=== PATIENT | female | born 1960 | race Caucasian/White ===

== ENCOUNTER 2016-10-20 09:35 | Emergency (ER) | payer OTHER ==
[~2016-10-20] VITALS: Ht 162.6 cm; Wt 75.5 kg
[~2016-10-20 09:35] MED LIST: ASPI81TA3 PO; IBUP400T22 PO; NIFE30TA60 PO
[2016-10-20 09:44] VITALS: Ht 162.6 cm; Wt 75.5 kg
[2016-10-20] MEDS ORDERED: ONDANSETRON 4 MG INJ IV STA (10:08)
[2016-10-20] MEDS ORDERED: FAMOTIDINE 20 MG INJ IV STA (10:08)
[2016-10-20] MEDS ORDERED: KETOROLAC 30 MG INJ IV STA (10:08)
[2016-10-20] MEDS ORDERED: SOD CHLORIDE 0.9% 1,000 ML IV STA (10:08)
[2016-10-20 10:49] LABS: ADD SCAN DIFF NO
[2016-10-20 10:51] LABS: BASOPHIL # 0.1 10^3/ul (0.0-0.1); BASOPHILS % 0.9 % (0.0-2.0); EOSINOPHILS # 0.2 10^3/ul (0.0-0.5); EOSINOPHILS % 3.2 % (0.0-7.0); HEMOGLOBIN 12.9 g/dl (12.0-16.0); LYMPHOCYTES # 2.4 10^3/ul (0.8-2.9); LYMPHOCYTES % 42.9 % (15.0-51.0); MEAN CORPUSCULAR HEMOGLOBIN 27.7 pg (29.0-33.0); MEAN CORPUSCULAR HGB CONC 33.1 g/dl (32.0-37.0); MEAN CORPUSCULAR VOLUME 83.9 fl (82.0-101.0); MEAN PLATELET VOLUME 10.4 fl (7.4-10.4); MONOCYTE # 0.4 10^3/ul (0.3-0.9); MONOCYTES % 6.6 % (0.0-11.0); NEUTROPHIL # 2.6 10^3/ul (1.6-7.5); PLATELET COUNT 257 10^3/UL (140-415); RED BLOOD COUNT 4.65 10^6/ul (4.20-5.40); RED CELL DISTRIBUTION WIDTH 13.4 % (11.5-14.5); WHITE BLOOD COUNT 5.6 10^3/ul (4.8-10.8)
[2016-10-20 10:54] LABS: ADD UMIC NO; URINE BILIRUBIN (Dip) NEGATIVE (NEGATIVE); URINE BLOOD (Dip) NEGATIVE (NEGATIVE); URINE COLOR LT. YELLOW (YELLOW); URINE GLUCOSE (Dip) NEGATIVE (NEGATIVE); URINE KETONES (Dip) NEGATIVE (NEGATIVE); URINE LEUKOCYTE ESTERASE (Dip) NEGATIVE (NEGATIVE); URINE NITRITE (Dip) NEGATIVE (NEGATIVE); URINE TOTAL PROTEIN (Dip) NEGATIVE (NEGATIVE); URINE UROBILINOGEN (Dip) 0.2 E.U./dL (0.1-1.0)
[2016-10-20 11:10] LABS: ALBUMIN 4.4 g/dl (3.3-4.9); ALBUMIN/GLOBULIN RATIO 1.1; BILIRUBIN,INDIRECT 0.4 mg/dl (0-1.1); BILIRUBIN,TOTAL 0.4 mg/dl (0.2-1.3); CALCIUM 9.4 mg/dl (8.4-10.2); CREATININE 0.67 mg/dl (0.44-1.00); POTASSIUM 4.2 mmol/L (3.5-5.1); TOTAL PROTEIN 8.4 g/dl (6.1-8.1)
--- NOTE | 2016-10-20 12:17 | RADRPT ---
PROCEDURE: CT Abdomen and Pelvis without contrast. CLINICAL INDICATION: Abdominal and pelvic pain. Left lower quadrant pain for 5 days. TECHNIQUE: CT scan of the abdomen and pelvis without contrast was performed. Coronal and sagittal reformatted images were obtained from the axial source images. Images were reviewed on a high[employer] PACS workstation. Total exam DLP is 763.98 mGy-cm. CTDIvol is 13.51 mGy. One or more of the f ollowing dose reduction techniques were used: Automated exposure control, adjustment of the mA and/o r kV according to patient size, use of iterative reconstruction technique. COMPARISON: 04/03/2015. FINDINGS: The lung bases are normal. There is no pleural effusion. The liver is normal in size and attenuation. There is no focal hepatic lesion. The gallbladder and bile ducts are normal. The spleen is normal in size. There is no focal splenic lesion. Both adrenals are normal with no enlargement or mass. The pancreas is unremarkable with no mass or evidence of pancreatitis. There is no renal mass or hydronephrosis. There is no renal calculus or ureteral calculus. The abdominal aorta is not dilated. There is no retroperitoneal lymphadenopathy or mass. There is no pelvic lymphadenopathy or mass. The bladder and distal ureters are normal. The appendix is well seen and appears normal. There is diverticulosis of the descending colon and sigmoid colon. There is no evidence of divertic ulitis. The bowel and mesentery are otherwise normal. There is no free fluid or free gas. There are degenerative changes of the lower lumbar spine. There is no fracture or lytic lesion. IMPRESSION: 1. Normal appendix. 2. Diverticulosis of the sigmoid colon and descending colon. No evidence of diverticulitis. 3. Degenerative changes of the lower lumbar spine. 4. Otherwise unremarkable noncontrast CT scan of the abdomen and pelvis. RPTAT: QQ .Papito Rubio MD, Date Time Electronically viewed and signed by .Papito Rubio MD, on 10/20/2016 12:16 .R/
[2016-10-20 12:24] VITALS: BP 149/75; PULSE 42; RESP 18; TEMP 98.1
--- NOTE | 2016-10-20 13:19 | RADRPT ---
PROCEDURE: Pelvic ultrasound. CLINICAL INDICATION: Pelvic pain, evaluate for ovarian torsion TECHNIQUE: Hernandze scale, color doppler, spectral doppler ultrasound of the pelvis was performed with transabdominal and transvaginal transducers. COMPARISON: Pelvic ultrasound 04/03/2015 FINDINGS: Uterus: Position: Anteflexed Normal myometrial echogenicity. A small amount of fluid is present within the endometrial cavity. 8 mm echogenic focus observed in t he fundal region of the endometrium possibly representing a polyp. Ovaries: Normal sized ovaries with preserved blood flow. No adnexal masses. 9 mm follicular remnant of the right ovary. Free fluid: None. Measurements: Endometrium: 0.7 cm Uterus: 6.4 x 3.5 x 4.6 cm Right ovary: 2.0 x 0.8 x 1.5 cm Left ovary: 2.8 x 0.7 x 2.0 cm IMPRESSION: Normal sized ovaries without evidence of torsion. Small amount of fluid within the endometrial space with a 8 mm echogenic focus in the fundal region of the endometrium possibly representing a polyp; this is not clearly observed on the previous exami [facility]. RPTAT: AADD .Michael Liu MD, Date Time Electronically viewed and signed by .Michael Liu MD, on 10/20/2016 13:18 .B/
--- NOTE | 2016-10-20 13:51 | ERD ---
ER Documentation Chief Complaint Date/Time DATE: 10/20/16 TIME: 13:47 Chief Complaint Pt presents with LLQ AP and pelvic pain X 5 days. No fever/N/D. HPI This is a 56-year-old female who presents to the emergency room for evaluation of abdominal pain. The patient states that she has had abdominal pain for approximately 5 days. She states that is localized in the left portion of abdomen describes as an achy pain. The patient does state that she has had this in the past. She denies any nausea, vomiting, or diarrhea associated with this. She denies any vaginal bleeding or vaginal discharge associated with this. She does state that she has had a previous uterine polyp and this pain does feel similar to that ROS All systems reviewed and are negative except as per history of present illness. Medications Home Meds Reported Medications Nifedipine* (Nifedipine ER*) 30 Mg Tablet.sa, 30 MG PO DAILY, TAB.SA 11/09/15 Aspirin* (Aspirin* Chew) 81 Mg Tab.chew, 81 MG PO DAILY, TAB.CHEW 09/13/15 Discontinued Reported Medications Ibuprofen* (Ibuprofen*) 400 Mg Tablet, 400 MG PO Q6H Y for PAIN, TAB 11/09/15 Allergies Allergies: Coded Allergies: No Known Allergy (Unverified , 10/20/16) PMhx/Soc History of Surgery: Yes (R KNEE SURGERY, PREV. C/S) Anesthesia Reaction: No Hx Neurological Disorder: No Hx Respiratory Disorders: No Hx Cardiac Disorders: No Hx Psychiatric Problems: No Hx Miscellaneous Medical Probl: No Hx Alcohol Use: No Hx Substance Use: No Hx Tobacco Use: No Smoking Status: Never smoker Physical Exam Vitals Vital Signs Date Time Temp Pulse Resp B/P Pulse Ox O2 Delivery O2 Flow Rate FiO2 10/20/16 12:24 98.1 42 18 149/75 99 10/20/16 09:44 97.4 54 18 180/78 99 Physical Exam INITIAL VITAL SIGNS: Reviewed by me GENERAL: The patient is well developed and appropriate for usual state of health in no apparent distress HEENT: Pupils equal, round, and reactive to light. EOMI. There is no scleral icterus. NECK: C-spine is soft and supple, there is no meningismus. There is no cervical lymphadenopathy. LUNGS: Clear to auscultation bilaterally. There are no rales, wheezes or rhonchi. HEART: Regular rate and rhythm, no murmurs, clicks, rubs or gallops. ABDOMEN: Left lower quadrant tenderness to palpation, otherwise soft, non-tender , non-distended. There are bowel sounds in all four quadrants. No rebound or guarding. EXTREMITIES: There is no peripheral cyanosis or edema. No focal swelling or erythema. NEUROLOGICAL: The patient moves all four extremities with 5/5 strength. Cranial nerves II - XII are intact. Normal gait. Alert and oriented SKIN: There is no apparent rash or petechiae. HEME/LYMPHATIC: There is no evidence of excessive bruising or lymphedema. PSYCHIATRIC: The patient does not appear anxious or depressed. Result Diagram: 10/20/16 1020 10/20/16 1020 Results 24 hrs Laboratory Tests Test 10/20/16 10:20 White Blood Count 5.610^3/ul Red Blood Count 4.6510^6/ul Hemoglobin 12.9g/dl Hematocrit 39.0% Mean Corpuscular Volume 83.9fl Mean Corpuscular Hemoglobin 27.7pg Mean Corpuscular Hemoglobin Concent 33.1g/dl Red Cell Distribution Width 13.4% Platelet Count 68960^3/UL Mean Platelet Volume 10.4fl Neutrophils % 46.0% Lymphocytes % 42.9% Monocytes % 6.6% Eosinophils % 3.2% Basophils % 0.9% Nucleated Red Blood Cells % 0.0/100WBC Neutrophils # 2.610^3/ul Lymphocytes # 2.410^3/ul Monocytes # 0.410^3/ul Eosinophils # 0.210^3/ul Basophils # 0.110^3/ul Nucleated Red Blood Cells # 0.010^3/ul Urine Color LT. YELLOW Urine Clarity CLEAR Urine pH 6.0 Urine Specific Homer 1.015 Urine Ketones NEGATIVE Urine Nitrite NEGATIVE Urine Bilirubin NEGATIVE Urine Urobilinogen 0.2 E.U./dL Urine Leukocyte Esterase NEGATIVE Urine Hemoglobin NEGATIVE Urine Glucose NEGATIVE% Urine Total Protein NEGATIVE Sodium Level 140mmol/L Potassium Level 4.2mmol/L Chloride Level 105mmol/L Carbon Dioxide Level 24mmol/L Anion Gap 15 Blood Urea Nitrogen 17mg/dl Creatinine 0.67mg/dl Glucose Level 133mg/dl Calcium Level 9.4mg/dl Total Bilirubin 0.4mg/dl Direct Bilirubin 0.00mg/dl Indirect Bilirubin 0.4mg/dl Aspartate Amino Transf (AST/SGOT) 39IU/L Alanine Aminotransferase (ALT/SGPT) 49IU/L Alkaline Phosphatase 144IU/L Total Protein 8.4g/dl Albumin 4.4g/dl Globulin 4.00g/dl Albumin/Globulin Ratio 1.10 Lipase 57U/L Current Medications Medications (Trade) Dose Ordered Sig/Chip Route PRN Reason Start Time Stop Time Status Last Admin Dose Admin Sodium Chloride (NS) 1,000 ml @ 1,000 mls/hr Q1H STAT IV 10/20/16 10:08 10/20/16 11:38 DC 10/20/16 10:29 Ondansetron HCl (Zofran Inj) 4 mg ONCE STAT IV 10/20/16 10:08 10/20/16 10:09 DC 10/20/16 10:38 Famotidine (Pepcid Iv) 20 mg ONCE STAT IV 10/20/16 10:08 10/20/16 10:09 DC 10/20/16 10:38 Ketorolac Tromethamine (Toradol) 30 mg ONCE STAT IV 10/20/16 10:08 10/20/16 10:09 DC 10/20/16 10:37 Procedures/MDM CT abdomen pelvis without: 1. Normal appendix. 2. Diverticulosis of the sigmoid colon and descending colon. No evidence of diverticulitis. 3. Degenerative changes of the lower lumbar spine. 4. Otherwise unremarkable noncontrast CT scan of the abdomen and pelvis. Ultrasound pelvis: Normal sized ovaries without evidence of torsion. Small amount of fluid within the endometrial space with a 8 mm echogenic focus in the fundal region of the endometrium possibly representing a polyp; this is not clearly observed on the previous examination. This [age]-year-old female presents to the emergency room for evaluation of abdominal pain. The patient has had previous abdominal pain was diagnosed with an endometrial polyp. She did have polyp operated on previously. She is denying any vaginal bleeding at this time. When I evaluated her she did have left lower quadrant tenderness to palpation. I did obtain a CT scan and did not show diverticulitis. The patient also underwent an ultrasound of the pelvis which shows an 8 mm focus in the fundal region of her endometrium which likely represents a polyp. Patient's pain is controlled with Toradol at this time. She will be discharged home with a prescription for Motrin, she states that she will follow-up with her [employer] physician. Differential diagnoses entertained was broad with potential high acuity. Patient has been evaluated for appendicitis, cholecystitis, and other high risk medical and surgical causes of abdominal pain. Ultimately the patient's evaluation is nondiagnostic. Based on the patient's lack of risk factors, as well as the patient's clinical, laboratory, and imaging data, the patient appears to be low risk for these high risk causes of abdominal pain. Departure Diagnosis: Primary Impression: Abdominal pain Additional Impression: Endometrial polyp Condition: Stable SERENA ROBBINS DO Oct 20, 2016 13:51
[2016-10-20] MEDS ORDERED: IBUP800T25 PO (14:13)
== END 2016-10-20 14:22 | disposition home or self-care (01) ==
LOC: E/R 09:35
DX: R10.32 Left lower quadrant pain (principal); N84.0 Polyp of corpus uteri
CPT/HCPCS: 36415; 74176; 76830; 76856; 80053; 81003; 83690; 85025; 96374; 96375; J1885; J2405; J7030; Z7502; Z7610

== ENCOUNTER 2019-02-09 14:28 | Emergency (ER) | payer OTHER ==
[~2019-02-09] VITALS: Ht 160 cm; Wt 75.2 kg
[~2019-02-09 14:28] MED LIST changes: +ASPI-903 PO; -ASPI81TA3 PO; -IBUP400T22 PO; +IBUP800T48 PO; +NIFE30TA23 PO; -NIFE30TA60 PO
[2019-02-09 14:30] VITALS: BP 130/61; PULSE 68; RESP 20; Ht 160 cm; Wt 75.2 kg
[2019-02-09] MEDS ORDERED: KETOROLAC 60 MG INJ IM STA (14:50)
[2019-02-09] MEDS ORDERED: CYCL10TA7 PO (14:51)
[2019-02-09] MEDS ORDERED: NAPR-985 PO (14:51)
[2019-02-09] MEDS ORDERED: TRAM50TA2 PO (14:51)
--- NOTE | 2019-02-09 15:04 | ERD ---
ER Documentation Chief Complaint Chief Complaint RT UPPER BACK PAIN SINCE SATURDAY HPI 58-year-old female presenting with right scapular pain. Patient denies any traumatic injury and states that she has been doing a lot of repetitive motions with cleaning and cooking at work. She had this 1 to 2 years ago and it went away however is returned and worsened over the last 3 days. Denies any chest pain or shortness of breath. Took Tylenol and ibuprofen with no alleviation of symptoms. History: Hypertension and hyperlipidemia. Surgical history of breast surgery. NKDA. Social history denies ROS All systems reviewed and are negative except as per history of present illness. Medications Home Meds Active Scripts Cyclobenzaprine Hcl* (Cyclobenzaprine Hcl*) 10 Mg Tablet, 10 MG PO TID, #15 TAB Prov:IZA FINE PA-C 02/09/19 Naproxen* (Naprosyn*) 500 Mg Tablet, 500 MG PO BID PRN for PAIN AND/OR INFLAMMATION, #30 TAB Prov:IZA FINE PA-C 02/09/19 Tramadol HCl (Tramadol HCl) 50 Mg Tablet, 50 MG PO Q4 PRN for PAIN, #20 TAB Prov:IZA FINE PA-C 02/09/19 Ibuprofen* (Motrin*) 800 Mg Tab, 800 MG PO Q6H PRN for PAIN AND OR ELEVATED TEMP, #30 TAB Prov:SERENA ROBBINS DO 10/20/16 Reported Medications Nifedipine* (Nifedipine ER*) 30 Mg Tablet.sa, 30 MG PO DAILY, TAB.SA 11/09/15 Aspirin* (Aspirin* Chew) 81 Mg Tab.chew, 81 MG PO DAILY, TAB.CHEW 09/13/15 Allergies Allergies: Coded Allergies: No Known Allergy (Unverified , 10/20/16) PMhx/Soc History of Surgery: Yes (R KNEE SURGERY, PREV. C/S) Anesthesia Reaction: No Hx Neurological Disorder: No Hx Respiratory Disorders: No Hx Cardiac Disorders: No Hx Psychiatric Problems: No Hx Miscellaneous Medical Probl: No Hx Alcohol Use: No Hx Substance Use: No Hx Tobacco Use: No FmHx Family History: No diabetes, No coronary disease, No other Physical Exam Vitals Vital Signs Date Temp Pulse Resp B/P (MAP) Pulse Ox O2 O2 Flow FiO2 Time Delivery Rate 02/09/19 97.7 68 20 130/61 98 14:30 (84) Physical Exam GENERAL: The patient is well-appearing, well-nourished, in no acute distress CHEST: Clear to auscultation bilaterally. There are no rales, wheezes or rhonchi. HEART: Regular rate and rhythm. No murmurs, clicks, rubs or gallops. BACK: No midline or flank tenderness. To palpation over the medial aspect of the right scapula with no deformity noted. EXTREMITIES: Equal pulses bilaterally. There is no peripheral clubbing, cyanosis or edema. No focal swelling or erythema. Full range of motion. Grossly neurovascularly intact. NEUROLOGIC: Alert and oriented. Cranial nerves II through XII intact. Motor strength in all 4 extremities with 5 out of 5 strength. Sensation grossly intact. Normal speech and gait. SKIN: There is no apparent rash or petechiae. The skin is warm and dry. Results 24 hrs Current Medications Medications Dose Sig/Chip Start Time Status Last (Trade) Ordered Route PRN Stop Time Admin Dose Reason Admin Ketorolac 60 mg ONCE STAT 02/09/19 DC Tromethamine IM 14:50 (Toradol) 02/09/19 14:51 Procedures/MDM ER course: Toradol given in the ED. MDM: 58-year-old female presenting with scapular pain. Patient has pain along the rhomboid and likely has inflammation and muscle spasm. Patient is discharged with supportive medications and told to follow-up with primary care within 1 to 2 days for close evaluation. Patient is discharged with supportive medications. I have considered PE, cardiac or pulmonary emergency but have low suspicion. Patient has normal vitals and exam is non-concerning. Pain is reproducible over the rhomboids with palpation. I have low suspicion for shingles or other viral rash as the skin exam is within normal limits. Patient is discharged with strict ER precautions and told to follow-up with primary care. All questions answered at discharge Departure Diagnosis: Primary Impression: Muscle spasm Condition: Stable Patient Instructions: Muscle Spasm Referrals: COMMUNITY CLINICS YOU HAVE RECEIVED A MEDICAL SCREENING EXAM AND THE RESULTS INDICATE THAT YOU DO NOT HAVE A CONDITION THAT REQUIRES URGENT TREATMENT IN THE EMERGENCY DEPARTMENT. FURTHER EVALUATION AND TREATMENT OF YOUR CONDITION CAN WAIT UNTIL YOU ARE SEEN I N YOUR DOCTORS OFFICE WITHIN THE NEXT 1-2 DAYS. IT IS YOUR RESPONSIBILITY TO MAKE AN APPOINTMENT FOR FOLOW-UP CARE. IF YOU HAVE A PRIMARY DOCTOR --you should call your primary doctor and schedule an appointment IF YOU DO NOT HAVE A PRIMARY DOCTOR YOU CAN CALL OUR PHYSICIAN REFERRAL HOTLINE AT IF YOU CAN NOT AFFORD TO SEE A PHYSICIAN YOU CAN CHOSE FROM THE FOLLOWING [facility] [address] [facility] [address] [facility] [facility] [address] [facility] [address] [facility] [facility] [address] [facility] [facility]. [address] Additional Instructions: FOLLOW UP WITH YOUR PRIMARY CARE PHYSICIAN TOMORROW.Return to this facility if you are not improving as expected. IZA FINE PA-C Feb 09, 2019 15:04
== END 2019-02-09 15:12 | disposition home or self-care (01) ==
LOC: FTE 14:28
DX: M62.838 Other muscle spasm (principal); Z79.82 Long term (current) use of aspirin
CPT/HCPCS: 96372; J1885; Z7502

== ENCOUNTER 2019-05-14 12:26 | Emergency (ER) | payer SELFPAY ==
[~2019-05-14] VITALS: Ht 152.4 cm; Wt 73.4 kg
[~2019-05-14 12:26] MED LIST changes: +CYCL10TA7 PO; +NAPR-985 PO; +TRAM50TA2 PO
[2019-05-14 12:37] VITALS: BP 171/77; PULSE 60; RESP 22; Ht 152.4 cm; Wt 73.4 kg
== END 2019-05-14 16:33 | disposition left against medical advice (07) ==
LOC: E/R 12:26
DX: Z53.21 Procedure and treatment not carried out due to patient leaving prior to being seen by health care provider (principal)
CPT/HCPCS: 93005